=== PATIENT | female | born 1975 | race African-American/Black ===

== ENCOUNTER 2017-02-06 11:12 | Emergency (ER) | payer OTHER ==
[2017-02-06 11:20] VITALS: BP 163/93; PULSE 95; TEMP 98.1; BMI 29.8
[2017-02-06] MEDS ORDERED: KETOROLAC TROMETHAMINE 60 MG/2 ML VIAL IM ONE (12:50)
[2017-02-06] MEDS ORDERED: predniSONE 20 MG TABLET (UD) PO ONE (12:50)
--- NOTE | 2017-02-06 12:58 | PDOC ---
History of Present Illness - General Chief Complaint: Back Pain Stated Complaint: BACK PAIN Time Seen by Provider: 02/06/17 12:07 History Source: Patient Exam Limitations: No Limitations - History of Present Illness Initial Comments: 02/06/17 12:54 Agent is here with complaints of back spasm. States has a chronic back pain history but is intermittent and remittent. Was seen here on a few other occasions for recurrence of spasm and treated with Toradol and Flexeril Occurred: reports: other (2 days ago ) Severity: reports: mild, moderate Pain Location: reports: back Loss of Consciousness: no loss of consciousness Associated Symptoms (Fall): denies symptoms Past History - Travel Traveled outside of the country in the last 30 days: No Close contact w/someone who was outside of country & ill: No - Past Medical History Allergies/Adverse Reactions: Allergies Allergy/AdvReac Type Severity Reaction Status Date / Time No Known Allergies Allergy Verified 02/06/17 11:20 Home Medications: Ambulatory Orders Methocarbamol [Robaxin -] 1,500 mg PO Q8H PRN #20 tablet 02/06/17 Naproxen [Naprosyn -] 500 mg PO BID #14 tablet 02/06/17 Prednisone [Deltasone -] 20 mg PO BID #8 tablet 02/06/17 HTN: Yes - Suicide/Smoking/Psychosocial Hx Smoking Status: No Smoking History: Never smoked Have you smoked in the past 12 months: No Number of Cigarettes Smoked Daily: 0 Information on smoking cessation initiated: No Hx Alcohol Use: No Drug/Substance Use Hx: No Substance Use Type: None Review of Systems - Review of Systems Able to Perform ROS?: Yes Is the patient limited [place] proficient: Yes Constitutional: Yes: Symptoms Reported, See HPI, Malaise. No: Fever, Loss of Appetite HEENTM: No: Symptoms Reported Respiratory: No: Symptoms reported : Yes: See HPI. No: Symptoms Reported, Burning Musculoskeletal: Yes: Symptoms Reported, See HPI, Back Pain, Muscle Pain, Muscle Weakness Neurological: Yes: Symptoms reported, See HPI All Other Systems: Reviewed and Negative *Physical Exam - Vital Signs Last Vital Signs Temp Pulse Resp BP Pulse Ox 98.1 F 95 H 16 163/93 100 02/06/17 11:17 02/06/17 11:17 02/06/17 11:17 02/06/17 11:02/06/17 11:17 - Physical Exam General Appearance: Yes: Nourished, Appropriately Dressed, Apparent Distress HEENT: positive: ANGELITA, Normal ENT Inspection, TMs Normal, Pharynx Normal Neck: positive: Supple. negative: Tender, Lymphadenopathy (R), Lymphadenopathy (L) Respiratory/Chest: positive: Lungs Clear, Normal Breath Sounds Cardiovascular: positive: Regular Rhythm Gastrointestinal/Abdominal: positive: Soft. negative: Tender Musculoskeletal: positive: Normal Inspection, Decreased Range of Motion ( indurated spasm, reproduced tenderness along the paravertebral spinous muscles primarily lumbar spine. Worse on the left than the right. Has no crepitus or step-offs along vertebral borders neurovascular intact to legs and feet), Muscle Spasm. 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, Fully Oriented, Alert, Normal Mood/ Affect, Normal Response, Motor Strength 5/5 Progress Note - Progress Note Progress Note: Back strain, will treat with NSAIDs, prednisone and Robaxin as Flexeril was not effective for her in the past *DC/Admit/Observation/Transfer Diagnosis at time of Disposition: Sprain, low back Qualifiers: Encounter type: initial encounter Qualified Code(s): S33.9XXA - Sprain of unspecified parts of lumbar spine and pelvis, initial encounter; S33.9XXA - Sprain of unspecified parts of lumbar spine and pelvis, initial encounter - Discharge Dispostion Disposition: HOME Condition at time of disposition: Stable Admit: No - Patient Instructions Printed Discharge Instructions: DI for Back Spasm Additional Instructions: Rest, no heavy lifting or exercise until pain is resolved Hot soaks to neck and low back as often as possible/hot showers or Jacuzzis No massage or therapy until spasm is gone Continue ibuprofen 2-200 mg tablets every 6 hours for the next 3 days then as needed for pain and swelling Robaxin 1500 mg every 8 hours or spasm , and reduce to 750 mg every 8 hours for continued spasm as needed Prednisone 40 mg daily for the next 4 days If not significant improvement within 24 hours with medication and rest regime, followup with private physician for change in medications and /or therapy.
[2017-02-06] MEDS ORDERED: predniSONE 20 MG TABLET (UD) ONE (12:59)
[2017-02-06] MEDS ORDERED: KETOROLAC TROMETHAMINE 60 MG/2 ML VIAL ONE ×2 (12:59→13:00)
== END 2017-02-06 13:13 | disposition home or self-care (01) ==
LOC: JERFT 11:12
PROC: 3E0233Z Introduction of Anti-inflammatory into Muscle, Percutaneous Approach (ICD-10-PCS; principal; 2017-02-06)
DX: S39.012A Strain of muscle, fascia and tendon of lower back, initial encounter (principal); S33.9XXA Sprain of unspecified parts of lumbar spine and pelvis, initial encounter
CPT/HCPCS: 96372; 99281-25

== ENCOUNTER 2018-02-21 17:25 | Emergency (ER) | payer OTHER ==
[2018-02-21 17:46] VITALS: BP 219/127; PULSE 88; TEMP 98.4; BMI 28.2
--- NOTE | 2018-02-21 17:47 | PDOC ---
Rapid Medical Evaluation Time Seen by Provider: 02/21/18 17:44 Medical Evaluation: Allergies Allergy/AdvReac Type Severity Reaction Status Date / Time No Known Allergies Allergy Verified 02/21/18 17:44 02/21/18 17:44 Pt presents with headache for three days. Pt states she usually gets headaches when her blood pressure is high. States she hasn't taken her blood pressure medications in one month Exam: ambulatory, NAD. BP 219/127 Orders: Labs, IV Pt to proceed to ED for further evaluation Discharge Disposition - Diagnosis HTN (hypertension), Headache - Referrals - Patient Instructions - Post Discharge Activity
[2018-02-21] MEDS ORDERED: HYDROCHLOROTHIAZIDE 25 MG TABLET (FP) PO ONE (19:05)
[2018-02-21] MEDS ORDERED: ACETAMINOPHEN 325 MG TABLET (FP) PO ONE (19:05)
[2018-02-21] MEDS ORDERED: amLODIPine BESYLATE 10 MG TABLET (FP) PO ONE (19:05)
== END 2018-02-21 19:08 | disposition left against medical advice (07) ==
LOC: JER 17:25
DX: I10 Essential (primary) hypertension (principal)
CPT/HCPCS: 99281-25